=== PATIENT | female | born 1945 | race Caucasian/White ===

== ENCOUNTER 2024-05-01 14:15 | Inpatient (IN) | payer MEDICARE, OTHER ==
[~2024-05-01] VITALS: Ht 152.4 cm; Wt 50.8 kg
[2024-05-01] MEDS ORDERED: TEMAZEPAM 7.5 MG CAPSULE PO PRN (15:00)
[2024-05-01] MEDS ORDERED: LORAZEPAM 0.5 MG TABLET PO PRN (15:00)
[2024-05-01] MEDS ORDERED: ACETAMINOPHEN 325 MG TABLET PO PRN (15:00)
[2024-05-01] MEDS: BLOOD SUGAR DIAGNOSTIC 1 EACH STRIP VI ONE (15:00)
[2024-05-01 15:06] VITALS: BP 142/74; TEMP 98.1; O2SAT 97
[2024-05-01] MEDS ORDERED: MAG HYDROX/AL HYDROX/SIMETH 30 ML LIQUID UDC PO PRN (15:15)
[2024-05-01] MEDS ORDERED: MAGNESIUM HYDROXIDE 30 ML LIQUID UDC PO PRN (15:15)
[2024-05-01] MEDS ORDERED: LOSA50TA39 PO (16:10)
[2024-05-01] MEDS ORDERED: ALEN70TA80 PO (16:10)
[2024-05-01] MEDS ORDERED: DOCU100C36 PO (16:10)
[2024-05-01] MEDS ORDERED: OLOP5DRO15 EACHEYE (16:10)
[2024-05-01] MEDS ORDERED: NITR0.4T48 SL (16:10)
[2024-05-01] MEDS ORDERED: OXYB5TAB16 PO (16:10)
[2024-05-01] MEDS ORDERED: POTA20PA40 PO (16:10)
[2024-05-01] MEDS ORDERED: AMLO-212 PO (16:10)
[2024-05-01] MEDS ORDERED: CALC-381 PO (16:10)
[2024-05-01] MEDS ORDERED: MECL-159 PO (16:10)
[2024-05-01] MEDS ORDERED: OMEG1CAP76 PO (16:10)
[2024-05-01] MEDS ORDERED: SUCR1TAB PO (16:10)
[2024-05-01] MEDS ORDERED: FLUT1DIS28 INH (16:10)
[2024-05-01] MEDS ORDERED: CETI-90 PO (16:10)
[2024-05-01] MEDS ORDERED: ALBU2.5V38 NEB (16:10)
[2024-05-01] MEDS ORDERED: FAMO20TA8 PO (16:10)
[2024-05-01] MEDS ORDERED: ALBU18HF2 INH (16:10)
[2024-05-01] MEDS ORDERED: ATOR10TA PO (16:10)
[2024-05-01] MEDS ORDERED: CYCL30DR EACHEYE (16:10)
[2024-05-01] MEDS ORDERED: ASPI-1101 PO (16:10)
[2024-05-01 19:50] VITALS: BP 144/86; TEMP 97.9; O2SAT 98
[2024-05-01] MEDS ORDERED: ALENDRONATE SODIUM 70 MG TABLET PO SCH (20:30)
[2024-05-01] MEDS: FLUTICASONE/SALMETEROL 250/50 INHALER INH SCH (20:30)
[2024-05-01] MEDS ORDERED: MECLIZINE HCL 25 MG TABLET PO PRN (20:30)
[2024-05-01] MEDS ORDERED: NITROGLYCERIN 0.4 MG/TAB BOTTLE SL PRN (20:30)
[2024-05-01] MEDS ORDERED: ALBUTEROL SULFATE 2.5 MG/3 ML NEBU NEB PRN (20:30)
[2024-05-01] MEDS: ATORVASTATIN 10 MG TABLET PO SCH (23:22)
[2024-05-02] MEDS ORDERED: NITROGLYCERIN 0.4 MG/TAB BOTTLE SL PRN (06:12)
[2024-05-02] MEDS ORDERED: MECLIZINE HCL 25 MG TABLET PO PRN (06:15)
[2024-05-02] MEDS: AMLODIPINE 5 MG TABLET PO SCH (08:15)
[2024-05-02] MEDS: DOCUSATE SODIUM 100 MG CAPSULE PO SCH (08:15)
[2024-05-02] MEDS: LOSARTAN POTASSIUM 50 MG TABLET PO SCH (08:15)
[2024-05-02 08:16] VITALS: BP 115/61; TEMP 98; O2SAT 99
[2024-05-02] MEDS: OMEGA-3 FATTY ACIDS/FISH OIL CAPSULE PO SCH (08:16)
[2024-05-02 08:32] LABS: BASOPHILS % (AUTO) 0.6 % (0.0-2.0); EOSINOPHILS # (AUTO) 0.3 K/uL (0.0-0.7); EOSINOPHILS % (AUTO) 4.9 % (0.0-7.0); HEMATOCRIT 34.9 % (31.2-41.9); HEMOGLOBIN 11.6 g/dL (10.9-14.3); LYMPHOCYTES # (AUTO) 1.5 K/uL (0.8-4.8); LYMPHOCYTES % (AUTO) 25.3 % (20.5-51.5); MEAN CORPUSCULAR HGB CONC 33 g/dL (32.3-35.6); MEAN CORPUSCULAR VOLUME 93.1 fL (75.5-95.3); MONOCYTES # (AUTO) 0.5 K/uL (0.1-1.30); MONOCYTES % (AUTO) 7.8 % (0.0-11.0); NEUTROPHILS # (AUTO) 3.7 K/uL (1.8-8.9); NEUTROPHILS % (AUTO) 61.4 % (38.5-71.5); PLATELET COUNT (AUTO) 158 K/uL (179-408); RED BLOOD CELL COUNT(AUTO) 3.75 MIL/uL (3.63-4.92); RED CELL DISTRIBUTION WIDTH 14.8 % (12.3-17.7)
[2024-05-02 08:34] LABS: DIFFERENTIAL COMMENT 1
[2024-05-02] MEDS ORDERED: FAMOTIDINE 20 MG TABLET PO SCH ×2 (09:00)
[2024-05-02] MEDS ORDERED: OXYBUTYNIN CHLORIDE 5 MG TABLET PO SCH ×2 (09:00)
[2024-05-02] MEDS ORDERED: CALCIUM CARB/VITAMIN D 500MG-200UNITS TABLET PO SCH ×2 (09:00)
[2024-05-02] MEDS ORDERED: ASPIRIN EC 81 MG TABLET.DR PO SCH (09:00)
[2024-05-02] MEDS ORDERED: CETIRIZINE HCL 10 MG TABLET PO SCH ×2 (09:00)
[2024-05-02] MEDS ORDERED: FLUTICASONE/SALMETEROL 250/50 INHALER INH SCH (09:00)
[2024-05-02] MEDS ORDERED: OLOPATADINE 0.1% OPHT DROP 5 ML BOTTLE EACHEYE SCH (09:00)
[2024-05-02 09:05] LABS: THYROID STIMULATING HORMONE 1.434 mIU/mL (0.358-3.740)
[2024-05-02 09:08] LABS: MAGNESIUM 1.9 mg/dL (1.8-2.4); PHOSPHOROUS 3.2 mg/dL (2.5-4.9)
[2024-05-02 09:22] LABS: ALANINE AMINOTRANSFERASE 12 U/L (14-59); ALBUMIN 3.3 g/dL (3.4-5.0); ALKALINE PHOSPHATASE 55 U/L (50-136); ASPARTATE AMINOTRANSFERASE 10 U/L (15-37); BILIRUBIN,TOTAL 1.4 mg/dL (0.2-1.0); CALCIUM 9.1 mg/dL (8.5-10.1); CARBON DIOXIDE 24 mmol/L (21-32); CHLORIDE 106 mmol/L (98-107); CREATININE 0.9 mg/dL (0.6-1.3); GLUCOSE 89 mg/dL (74-106); POTASSIUM 3.1 mmol/L (3.5-5.1); SODIUM SERUM 144 mmol/L (136-145); UREA NITROGEN, BLOOD 28 mg/dL (7-18)
[2024-05-02] MEDS ORDERED: ZOLPIDEM 5 MG TABLET PO PRN (09:45)
[2024-05-02] MEDS ORDERED: LORAZEPAM 0.5 MG TABLET PO PRN (09:45)
[2024-05-02] MEDS ORDERED: LORAZEPAM 1 MG TABLET PO PRN (10:30)
[2024-05-02 15:17] VITALS: BP 115/62; TEMP 97.8; O2SAT 99
[2024-05-02] MEDS: risperiDONE 0.5 MG TABLET PO SCH (16:30)
[2024-05-02] MEDS: OLOPATADINE 0.1% OPHT DROP 5 ML BOTTLE EACHEYE SCH (16:30)
[2024-05-02 20:00] VITALS: BP 105/65; TEMP 97.9; O2SAT 100
[2024-05-02] MEDS: MIRTAZAPINE 15 MG TABLET PO SCH (21:06)
[2024-05-02] MEDS: ATORVASTATIN 10 MG TABLET PO SCH (21:07)
[2024-05-03 08:14] VITALS: BP 155/97; TEMP 98; O2SAT 98
[2024-05-03] MEDS: CHOLECALCIFEROL 1,000 UNIT TABLET PO SCH (09:19)
[2024-05-03] MEDS: MULTIVITAMINS,THERAPEUTIC TABLET PO SCH (09:20)
[2024-05-03] MEDS: CALCIUM CARBONATE 500 MG TABLET PO SCH (09:21)
[2024-05-03] MEDS: ASPIRIN EC 81 MG TABLET.DR PO SCH (09:21)
[2024-05-03] MEDS: FLUTICASONE/VILANTEROL 1 EACH BLST.W.DEV INH SCH (09:22)
[2024-05-03] MEDS: FERROUS SULFATE 325 MG TABEC PO SCH (09:24)
[2024-05-03] MEDS: ASCORBIC ACID 500 MG TABLET PO SCH (09:29)
[2024-05-03 15:32] VITALS: BP 95/43; TEMP 98; O2SAT 98
[2024-05-03 20:00] VITALS: BP 85/35; TEMP 97.6; O2SAT 98
[2024-05-03 20:30] VITALS: BP 96/67
[2024-05-04 08:08] VITALS: BP 130/95; TEMP 98.2; O2SAT 98
[2024-05-04 15:05] VITALS: BP 117/63; TEMP 98; O2SAT 98
[2024-05-04 20:00] VITALS: BP 96/60; TEMP 97.3; O2SAT 96
[2024-05-04] MEDS: risperiDONE 0.5 MG TABLET PO SCH (20:29)
[2024-05-05] MEDS: ALENDRONATE SODIUM 70 MG TABLET PO SCH (06:10)
[2024-05-05 07:51] VITALS: BP 133/98; TEMP 98.7; O2SAT 96
[2024-05-05 16:26] VITALS: BP 94/43; TEMP 98.6; O2SAT 97
[2024-05-05 20:00] VITALS: BP 96/60; TEMP 98.2; O2SAT 96
[2024-05-06 08:30] VITALS: BP 122/69; TEMP 98.1; O2SAT 97
[2024-05-06 16:27] VITALS: BP 105/57; TEMP 98; O2SAT 98
[2024-05-06 21:34] VITALS: BP 122/63; TEMP 98; O2SAT 100
[2024-05-07 08:35] VITALS: BP 157/67; TEMP 98.3; O2SAT 98
[2024-05-07 16:16] VITALS: BP 93/65; TEMP 98.3; O2SAT 98
[2024-05-07 19:45] VITALS: BP 113/64; TEMP 98.1; O2SAT 96
[2024-05-07] MEDS: risperiDONE 1 MG TABLET PO SCH (20:50)
[2024-05-07] MEDS ORDERED: risperiDONE 0.5 MG TABLET PO SCH (21:00)
[2024-05-08 07:21] LABS: POTASSIUM 4.2 mmol/L (3.5-5.1)
[2024-05-08 08:13] VITALS: BP 118/58; TEMP 98; O2SAT 98
[2024-05-08] MEDS: VENLAFAXINE XR 37.5 MG CAP.SR.24H PO SCH (11:04)
[2024-05-08 14:22] VITALS: BP 125/59; TEMP 98; O2SAT 98
[2024-05-08 19:43] VITALS: BP 101/56; TEMP 97.9; O2SAT 96
[2024-05-08] MEDS: MELATONIN 3 MG TABLET PO SCH (20:51)
[2024-05-09 08:01] VITALS: BP 99/65; TEMP 98; TEMP 98.2; O2SAT 98
[2024-05-09 16:39] VITALS: BP 98/62; TEMP 98; O2SAT 96
[2024-05-09 19:39] VITALS: BP 101/64; TEMP 97.9; O2SAT 96
[2024-05-10 08:19] VITALS: BP 122/70; TEMP 98; O2SAT 94
[2024-05-10 15:15] VITALS: BP 100/51; TEMP 98.2; O2SAT 98
[2024-05-10 20:00] VITALS: BP 123/87; TEMP 97.5; O2SAT 93
[2024-05-11 08:26] VITALS: BP 119/89; TEMP 98; O2SAT 98
[2024-05-11 09:31] VITALS: BP 119/89
== END 2024-05-11 12:05 | DRG 885 ==
LOC: GPS 14:15
PROVIDERS: ADMIT Psychiatry & Neurology Psychiatry; ATTEND Nurse Practitioner Acute Care
DX: F25.1 Schizoaffective disorder, depressive type (principal); E44.1 Mild protein-calorie malnutrition; F03.93 Unspecified dementia, unspecified severity, with mood disturbance; E78.5 Hyperlipidemia, unspecified; E88.09 Other disorders of plasma-protein metabolism, not elsewhere classified; M81.0 Age-related osteoporosis without current pathological fracture; Z91.199 Patient's noncompliance with other medical treatment and regimen due to unspecified reason; I10 Essential (primary) hypertension; K21.9 Gastro-esophageal reflux disease without esophagitis; M15.9 Polyosteoarthritis, unspecified; E87.6 Hypokalemia; R79.89 Other specified abnormal findings of blood chemistry
CPT/HCPCS: 36415; 83735; 84100; 84443; 85025; J8499; J8597